=== PATIENT | male | born 1975 | race Caucasian/White ===

== ENCOUNTER 2017-08-27 01:12 | Emergency (ER) | payer OTHER ==
[~2017-08-27] VITALS: Ht 187.9 cm; Wt 113.4 kg
[~2017-08-27 01:12] MED LIST: TRAMADOL HCL50 MG PO
[2017-08-27] MEDS ORDERED: ZYRTEC10 MG PO (03:17)
[2017-08-27] MEDS ORDERED: PREDNISONE20 M1 PO (03:17)
== END 2017-08-27 03:32 | disposition home or self-care (01) ==
LOC: ED 01:12
DX: T78.40XA Allergy, unspecified, initial encounter (principal); X58.XXXA Exposure to other specified factors, initial encounter; L50.9 Urticaria, unspecified

== ENCOUNTER 2017-08-29 01:09 | Emergency (ER) | payer OTHER ==
[~2017-08-29] VITALS: Ht 187.9 cm; Wt 113.4 kg
[~2017-08-29 01:09] MED LIST changes: +PREDNISONE20 M1 PO; +ZYRTEC10 MG PO
[2017-08-29] MEDS ORDERED: PEPCID20 MG PO (01:33)
[2017-08-29] MEDS ORDERED: DELTASONE20 M1 PO (01:33)
== END 2017-08-29 01:42 | disposition home or self-care (01) ==
LOC: ED 01:09
DX: L50.9 Urticaria, unspecified (principal)

== ENCOUNTER 2022-08-29 16:26 | Emergency (ER) | payer OTHER ==
[~2022-08-29] VITALS: Ht 187.9 cm; Wt 117.9 kg
[~2022-08-29 16:26] MED LIST changes: +DELTASONE20 M1 PO; +PEPCID20 MG PO
== END 2022-08-29 19:45 | disposition home or self-care (01) ==
LOC: ED 16:26
DX: S93.402A Sprain of unspecified ligament of left ankle, initial encounter (principal); X50.1XXA Overexertion from prolonged static or awkward postures, initial encounter; Y93.39 Activity, other involving climbing, rappelling and jumping off; Y92.89 Other specified places as the place of occurrence of the external cause; Y99.8 Other external cause status

== ENCOUNTER → 2023-09-20 | Outpatient (CLI) | payer OTHER ==
[~2023-09-20] MED LIST changes: +LIPITOR20 MG PO; +LOSARTAN POTAS100 MG PO
== END | disposition home or self-care (01) ==
LOC: CARD 00:11
PROVIDERS: ATTEND Family Medicine
DX: R07.89 Other chest pain (principal)